=== PATIENT | female | born 1960 | race American Indian/Alaskan Native ===

== ENCOUNTER 2021-03-11 18:19 | Emergency (ER) | payer SELFPAY ==
[2021-03-11 18:23] VITALS: BP 194/102
[2021-03-11] MEDS ORDERED: ARIPiprazole 10 MG TAB PO ONE (18:26)
[2021-03-11] MEDS ORDERED: VENLAFAXINE 75 MG TAB PO ONE (18:26)
[2021-03-11] MEDS ORDERED: ARIPiprazole 15 MG TAB PO ONE (18:26)
--- NOTE | 2021-03-11 18:31 | Emergency Department Report ---
ED General Adult HPI - General Chief complaint: Psych Stated complaint: MENTAL HEALTH Time Seen by Provider: 03/11/21 18:26 Source: patient Mode of arrival: Ambulatory Limitations: No Limitations - History of Present Illness Initial comments: Patient presents secondary to anxiety and crying. She has been out of her psychiatric medications for 3 weeks now. When she was on her medications, she felt well and was stabilized. She ran out 3 weeks ago. She states that she can get the prescriptions filled but she did not have prescriptions. She is not suicidal or homicidal. She states he just crying and feels very anxious and nervous. She is hoping that we can give her medication. She denies trauma. She has no chest pain or shortness of breath. There is no back pain or vomiting. She is not hearing voices. Severity scale (0 -10): 0 - Related Data Previous Rx's Medication Instructions Recorded Last Taken Type ARIPiprazole [Abilify TAB] 4 mg PO DAILY #60 tab 03/11/21 Unknown Rx Venlafaxine HCl [Effexor Xr] 150 mg PO BID #60 cap.er.24h 03/11/21 Unknown Rx busPIRone [Buspar] 10 mg PO BID #60 tab 03/11/21 Unknown Rx ED Review of Systems ROS: Stated complaint: MENTAL HEALTH Other details as noted in HPI Comment: All other systems reviewed and negative Constitutional: denies: fever Eyes: denies: eye pain ENT: denies: throat pain Respiratory: denies: cough Cardiovascular: denies: chest pain Endocrine: denies: unexplained weight loss Gastrointestinal: denies: vomiting Genitourinary: denies: dysuria Musculoskeletal: denies: back pain Skin: denies: rash Neurological: denies: headache Psychiatric: as per HPI Hematological/Lymphatic: denies: easy bruising ED Past Medical Hx - Past Medical History Hx Psychiatric Treatment: Yes - Family History Family history: no significant - Medications Home Medications: Home Medications Medication Instructions Recorded Confirmed Last Taken Type ARIPiprazole [Abilify TAB] 4 mg PO DAILY #60 tab 03/11/21 Unknown Rx Venlafaxine HCl [Effexor Xr] 150 mg PO BID #60 cap.er.24h 03/11/21 Unknown Rx busPIRone [Buspar] 10 mg PO BID #60 tab 03/11/21 Unknown Rx ED Physical Exam - General Limitations: No Limitations, Other (Pulse ox noted and normal) General appearance: alert, in distress (Tearful and anxious) - Head Head exam: Present: atraumatic, normocephalic, normal inspection - Eye Eye exam: Present: normal appearance, EOMI. Absent: scleral icterus - ENT ENT exam: Present: mucous membranes moist, normal external ear exam - Neck Neck exam: Present: normal inspection. Absent: meningismus - Respiratory Respiratory exam: Present: normal lung sounds bilaterally. Absent: respiratory distress - Cardiovascular Cardiovascular Exam: Present: normal rhythm, tachycardia - GI/Abdominal GI/Abdominal exam: Present: soft. Absent: tenderness - Extremities Exam Extremities exam: Present: normal capillary refill - Back Exam Back exam: Absent: tenderness, CVA tenderness (L) - Neurological Exam Neurological exam: Present: alert, oriented X3, normal gait. Absent: motor sensory deficit - Psychiatric Psychiatric exam: Present: anxious, other (Tearful) - Skin Skin exam: Present: warm, dry ED Course Vital Signs 03/11/21 18:22 Temperature 97.1 F L Pulse Rate 115 H Respiratory 18 Rate Blood Pressure 194/102 [Right] O2 Sat by Pulse 98 Oximetry - Reevaluation(s) Reevaluation #1: 03/11/21 18:29 Patient was given medications. Old records reviewed. ED Medical Decision Making - Medical Decision Making Patient presents secondary to anxiety and tearfulness. She has been out of her medication. We can refill her medication. She has been informed that we do not have samples. She is not suicidal homicidal. She is not actively hallucinating. There is no evidence of acute delusion. She feels comfortable going home. She does not feel as though she needs to speak to anyone in psychiatric services tonight. She states that once on her medication, she knows that she will feel better. Critical Care Time: No Critical care attestation.: If time is entered above; I have spent that time in minutes in the direct care of this critically ill patient, excluding procedure time. ED Disposition Clinical Impression: Anxiety, Medication refill Depression Qualifiers: Depression Type: unspecified Qualified Code(s): F32.A - Depression, unspecified Disposition: 01 HOME / SELF CARE / HOMELESS Is pt being admited?: No Condition: Stable Instructions: Living With Depression, Managing Anxiety, Adult Additional Instructions: Take your medication. Drink plenty water. Follow-up with your regular doctor. If you do not have a regular doctor, follow-up with the referral physician. Return for problems. Prescriptions: ARIPiprazole [Abilify TAB] 4 mg PO DAILY #60 tab busPIRone [Buspar] 10 mg PO BID #60 tab Venlafaxine HCl [Effexor Xr] 150 mg PO BID #60 cap.er.24h Referrals: PRIMARY MD ANIYA [Referring] - 3-5 Days MOE HERNANDEZ MD [Staff Physician] - 3-5 Days
[2021-03-11] MEDS ORDERED: busPIRone 10 MG TAB PO ONE (19:11)
== END 2021-03-12 20:00 | disposition home or self-care (01) ==
LOC: ED 18:19
DX: F41.9 Anxiety disorder, unspecified (principal); F32.9 Major depressive disorder, single episode, unspecified; Z76.0 Encounter for issue of repeat prescription; Z79.899 Other long term (current) drug therapy
CPT/HCPCS: 99282

== ENCOUNTER 2021-07-28 08:20 | Emergency (ER) | payer SELFPAY ==
[2021-07-28 08:29] VITALS: BP 184/98
--- NOTE | 2021-07-28 13:20 | Emergency Department Report ---
ED Extremity Problem HPI - General Chief complaint: Pain General Stated complaint: DEPRESSION/ARM LEG PAIN Time Seen by Provider: 07/28/21 12:31 Source: patient Mode of arrival: Ambulatory Limitations: No Limitations - History of Present Illness Initial comments: This is a 61-year-old female with a past medical history of diabetes, hypertension and depression controlled with medications who presents to the ED today complaining of right upper shoulder pain for the past 6 months. Patient states pain is aching in nature and sometimes radiates down her lower arm. Patient states that 2 weeks ago she started experiencing throbbing aching right shoulder pain. She denies any injury, trauma, shortness of breath, chest pain, shortness of breath. Patient states that she thinks that her arthritis is acting up as she is also has been experiencing hip pain with prolonged walking. Patient states that she is due to go see her physicians next month due to lapse of insurance she was unable to see her insurance at this time. Patient also states that she is out of her NovoLog and would like a prescription refill. MD Complaint: extremity pain Severity scale (0 -10): 4 - Related Data Home Medications Medication Instructions Recorded Confirmed Last Taken Abilify 4 mg PO QDAY 07/28/21 07/28/21 1 Day Ago ~07/27/21 AtorvaSTATin 20 mg PO QDAY 07/28/21 07/28/21 1 Day Ago ~07/27/21 Losartan/Hydrochlorothiazide 12.5 mg PO QDAY 07/28/21 07/28/21 1 Day Ago [Losartan-Hctz 100-12.5 mg Tab] ~07/27/21 amLODIPine 5 mg PO QDAY 07/28/21 07/28/21 1 Day Ago ~07/27/21 Previous Rx's Medication Instructions Recorded Last Taken Type ARIPiprazole [Abilify TAB] 4 mg PO DAILY #60 tab 03/11/21 1 Day Ago Rx ~07/27/21 Venlafaxine HCl [Effexor Xr] 150 mg PO BID #60 cap.er.24h 03/11/21 1 Day Ago Rx ~07/27/21 busPIRone [Buspar] 10 mg PO BID #60 tab 03/11/21 1 Day Ago Rx ~07/27/21 Cyclobenzaprine [Flexeril] 10 mg PO QHS PRN #20 07/28/21 Unknown Rx Insulin Aspart Prot/Aspart(Nf) 20 units SQ BID #100 vial 07/28/21 Unknown Rx [Novolog Mix 70/30] Naproxen [Naprosyn] 500 mg PO BID #30 tablet 07/28/21 Unknown Rx Allergies Allergy/AdvReac Type Severity Reaction Status Date / Time No Known Allergies Allergy Verified 07/28/21 14:11 ED Review of Systems ROS: Stated complaint: DEPRESSION/ARM LEG PAIN Other details as noted in HPI Comment: All other systems reviewed and negative ED Past Medical Hx - Past Medical History Hx Psychiatric Treatment: Yes - Medications Home Medications: Home Medications Medication Instructions Recorded Confirmed Last Taken Type ARIPiprazole [Abilify TAB] 4 mg PO DAILY #60 tab 03/11/21 07/28/21 1 Day Ago Rx ~07/27/21 Venlafaxine HCl [Effexor Xr] 150 mg PO BID #60 cap.er.24h 03/11/21 07/28/21 1 Day Ago Rx ~07/27/21 busPIRone [Buspar] 10 mg PO BID #60 tab 03/11/21 07/28/21 1 Day Ago Rx ~07/27/21 Abilify 4 mg PO QDAY 07/28/21 07/28/21 1 Day Ago History ~07/27/21 AtorvaSTATin 20 mg PO QDAY 07/28/21 07/28/21 1 Day Ago History ~07/27/21 Cyclobenzaprine [Flexeril] 10 mg PO QHS PRN #20 07/28/21 Unknown Rx Insulin Aspart Prot/Aspart(Nf) 20 units SQ BID #100 vial 07/28/21 Unknown Rx [Novolog Mix 70/30] Losartan/Hydrochlorothiazide 12.5 mg PO QDAY 07/28/21 07/28/21 1 Day Ago History [Losartan-Hctz 100-12.5 mg Tab] ~07/27/21 Naproxen [Naprosyn] 500 mg PO BID #30 tablet 07/28/21 Unknown Rx amLODIPine 5 mg PO QDAY 07/28/21 07/28/21 1 Day Ago History ~07/27/21 ED Physical Exam - General Limitations: No Limitations General appearance: alert, in no apparent distress - Head Head exam: Present: atraumatic, normocephalic - Eye Eye exam: Present: normal appearance - ENT ENT exam: Present: mucous membranes moist - Neck Neck exam: Present: normal inspection, full ROM. Absent: tenderness - Respiratory Respiratory exam: Present: normal lung sounds bilaterally. Absent: respiratory distress - Cardiovascular Cardiovascular Exam: Present: regular rate, normal rhythm. Absent: systolic murmur, diastolic murmur, rubs, gallop - GI/Abdominal GI/Abdominal exam: Present: soft, normal bowel sounds - Extremities Exam Extremities exam: Present: normal inspection - Expanded Upper Extremity Exam Right General: Present: normal inspection Shoulder Exam: Present: normal inspection, full ROM. Absent: tenderness, swelling, abrasion Upper Arm exam: Present: normal inspection (9-year-old IM pain.), full ROM ( Complaint). Absent: tenderness (Patient's wounds) Elbow exam: Present: normal inspection, full ROM. Absent: tenderness, swelling Forearm Wrist exam: Present: normal inspection, full ROM. Absent: tenderness, swelling, abrasion Vascular: Present: normal capillary refill. Absent: vascular compromise - Back Exam Back exam: Present: normal inspection, full ROM, muscle spasm. Absent: tenderness, CVA tenderness (R), CVA tenderness (L) - Neurological Exam Neurological exam: Present: alert, oriented X3, CN II-XII intact, normal gait. Absent: abnormal gait - Psychiatric Psychiatric exam: Present: normal affect, normal mood - Skin Skin exam: Present: warm, dry, intact, normal color. Absent: rash ED Course Vital Signs 07/28/21 08:26 Temperature 98.2 F Pulse Rate 61 Respiratory 20 Rate Blood Pressure 184/98 [Right] O2 Sat by Pulse 97 Oximetry ED Medical Decision Making - Medical Decision Making 61-year-old female presenting with myalgia of the right shoulder most likely secondary to arthritis. NovoLog medication refilled. Patient given Rx medication for shoulder pain pain. Discussed follow-up with primary care physician as well as psychiatrist for evaluation prior to refill of psych meds. Vital signs are normal she is in no acute distress. Patient has no neurodeficit. Patient is ambulatory and speaking in clear sentences. Patient voiced understanding instructions and need to follow-up. Critical care attestation.: If time is entered above; I have spent that time in minutes in the direct care of this critically ill patient, excluding procedure time. ED Disposition Clinical Impression: Medication refill, Arthralgia of shoulder region, right Disposition: HOME / SELF CARE / HOMELESS Is pt being admited?: No Does the pt Need Aspirin: No Condition: Stable Instructions: Shoulder Pain, Musculoskeletal Pain, Joint Pain, [id number] Additional Instructions: Make sure to follow up with the primary care physician as discussed. Take all your medications as you've been prescribed. If you have any worsening symptoms or develop new symptoms please return to ED immediately. Please Prescriptions: Cyclobenzaprine [Flexeril] 10 mg PO QHS PRN #20 PRN Reason: Muscle Spasm Naproxen [Naprosyn] 500 mg PO BID #30 tablet Insulin Aspart Prot/Aspart(Nf) [Novolog Mix 70/30] 20 units SQ BID #100 vial Referrals: PRIMARY CARE, [Primary Care Provider] - 3-5 Days [facility] [Outside] - 3-5 Days [facility] [Outside] - 3-5 Days Forms: Work/School Release Form(ED) Time of Disposition: 13:31
== END 2021-07-28 14:38 | disposition home or self-care (01) ==
LOC: ED 08:20
DX: M25.511 Pain in right shoulder (principal); Z76.0 Encounter for issue of repeat prescription; Z79.899 Other long term (current) drug therapy
CPT/HCPCS: 99282